=== PATIENT | male | born 1985 | race Two or more races ===

== ENCOUNTER 2024-11-09 23:39 | Emergency (ER) | payer OTHER ==
[~2024-11-09] VITALS: Ht 177.8 cm; Wt 70.0 kg
[2024-11-09] MEDS: SODIUM CHLORIDE 0.9% 1,000 ML IV ONE (23:45)
[2024-11-09] MEDS: MORPHINE SULFATE 4 MG/ML SYR/VIAL IV ONE (23:45)
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
[2024-11-10] MEDS: ceFAZolin 2 GM/D5W50ml 50 ML IV ONE (01:03)
[2024-11-10] MEDS: ceFAZolin 1GM/50ML 100 ML IV ONE (01:03)
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
[2024-11-10 01:15] VITALS: TEMP 97
[2024-11-10 01:18] LABS: Anion Gap 7 (5-15)
[2024-11-10 01:20] VITALS: PULSE 104; RESP 12; O2SAT 95
[2024-11-10 01:30] VITALS: BP 122/75; PULSE 104; RESP 12
[2024-11-10] MEDS: IOHEXOL 350 MG/ML 100ML IJ ONE (01:35)
[2024-11-10] MEDS: KETAMINE 50mg/ML 10ml Vial 10 ML ONE (01:35)
[2024-11-10] MEDS: MIDAZOLAM HCL 2MG/2ML 2ml VIAL (1mg/ml) ONE (01:36)
[2024-11-10] MEDS: KETAMINE 50mg/ML 10ml Vial (500mg/10ml) IV ONE (01:36)
[2024-11-10] MEDS: MIDAZOLAM HCL 5 MG/ML-1ML VIAL IV ONE (01:36)
[2024-11-10] MEDS: TETANUS-DIPTH-ACEL PERTUSSIS 0.5ML SYR Tdap IM ONE (01:39)
[2024-11-10] MEDS: ONDANSETRON HCL 4 MG/2 ML VIAL IV ONE (01:39)
[2024-11-10 01:42] LABS: Alanine Aminotransferase 13 U/L (7-40); Albumin 4.2 g/dL (3.2-4.8); Alkaline Phosphatase 88 U/L (46-116); Aspartate Aminotransferase 14 U/L (13-40); Bilirubin, Total 0.4 mg/dL (0.2-1.0); Blood Alcohol 216.3 mg/dL (<10); Blood Urea Nitrogen 8 mg/dL (9-23); Calcium 8.9 mg/dL (8.7-10.4); Carbon Dioxide 26 mmol/L (20-31); Chloride 111 mmol/L (98-107); Glucose 121 mg/dL (74-106); Potassium 4.2 mmol/L (3.5-5.1); Sodium 144 mmol/L (136-145); Total Protein 6.2 g/dL (5.7-8.2)
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
[2024-11-10 01:51] LABS: Basophils # (auto) 0.1 10 ^3/uL (0-0.2); Basophils % (auto) 0.3 % (0.0-2.0); Eosinophils # (auto) 0.2 10 ^3/uL (0-0.8); Eosinophils % (auto) 0.7 % (0.0-7.0); Hematocrit 49.6 % (41.0-53.0); Hemoglobin 17.1 g/dL (13.5-17.5); Lymphocytes # (auto) 2.2 10 ^3/uL (0.4-5.4); Lymphocytes % (auto) 8.9 % (10.0-50.0); Mean Corpuscular Hemoglobin 32.8 pg (28.0-32.0); Mean Corpuscular Hgb Conc. 34.4 g/dL (32.0-36.0); Mean Corpuscular Volume 95.4 fL (80.0-100.0); Monocytes % (auto) 7.7 % (0.0-12.0); Neutrophils # (auto) 20.9 10 ^3/uL (1.6-8.6); Neutrophils % (auto) 82.4 % (37.0-80.0); Nucleated Red Blood Cells % 0.1 %; Platelet Count (auto) 215 10^3/uL (140-450); Red Cell Distribution Width 16.6 % (11.8-14.3); White Blood Cell 25.3 10^3/uL (4.4-10.8)
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
== END 2024-11-10 01:37 | disposition short-term general hospital (02) ==
LOC: ER 23:39
DX: S62.317B Displaced fracture of base of fifth metacarpal bone, left hand, initial encounter for open fracture (principal); S71.132A Puncture wound without foreign body, left thigh, initial encounter; W34.09XA Accidental discharge from other specified firearms, initial encounter; Y93.89 Activity, other specified; Y92.89 Other specified places as the place of occurrence of the external cause; Y99.8 Other external cause status
CPT/HCPCS: 36415; 36430; 71045; 71260; 73130; 73706; 74177; 80053; 80320; 83605; 85025; 86850; 86900; 86901; 86920; 90471; 90715; 96361; 96365; 96375; 99291; J0690; J2250; J2405; J7030; P9016; Q9967